=== PATIENT | male | born 1965 | race Asian ===

== ENCOUNTER 2023-05-11 07:01 | Day surgery (SDC) | payer OTHER ==
[2023-04-27 14:36] VITALS: BMI 23.8
[2023-05-11] MEDS ORDERED: MIDAZOLAM HCL 2 MG/2 ML SINGLE DOSE VIAL ONE (08:14)
[2023-05-11] MEDS ORDERED: PROPOFOL 20 ML ONE (08:14)
[2023-05-11] MEDS ORDERED: EPINEPHrine 1:1,000 1,000 MCG/ML ML ONE (08:41)
[2023-05-11] MEDS ORDERED: BUPIVACAINE HCL/PF 2.5 MG/ML - 30 ML VIAL IJ ONE (08:42)
[2023-05-11] MEDS ORDERED: DEXAMETHASONE SOD PHOSPHATE 4 MG/1 ML VIAL ONE ×2 (09:57)
[2023-05-11] MEDS ORDERED: ONDANSETRON 4 MG/2 ML VIAL ONE (09:57)
[2023-05-11] MEDS ORDERED: ceFAZolin SODIUM 1 GM VIAL ONE ×2 (09:57→09:58)
[2023-05-11] MEDS ORDERED: KETOROLAC TROMETHAMINE 30 MG/1 ML VIAL ONE (09:57)
[2023-05-11] MEDS ORDERED: oxyCODONE HCL 5 MG TABLET PO PRN (10:55)
[2023-05-11] MEDS ORDERED: FENTANYL CITRATE/PF 50 MCG/ML VIAL ONE (10:59)
[2023-05-11] MEDS ORDERED: oxyCODONE HCL 5 MG TABLET ONE (11:21)
[2023-05-11] MEDS: oxyCODONE HCL 5 MG TABLET PO PRN (11:24)
[2023-05-11 12:16] VITALS: RESP 20; TEMP 97.8
[2023-05-11 13:52] VITALS: BP 112/71; PULSE 74
== END 2023-05-11 13:00 | disposition home or self-care (01) ==
LOC: FASU 07:01
PROVIDERS: ATTEND Orthopaedic Surgery
PROC: 0SBC4ZZ Excision of Right Knee Joint, Percutaneous Endoscopic Approach (ICD-10-PCS; 2023-05-11)
PROC: 0SQC4ZZ Repair Right Knee Joint, Percutaneous Endoscopic Approach (ICD-10-PCS; principal; 2023-05-11 09:52)
DX: S83.241A Other tear of medial meniscus, current injury, right knee, initial encounter (principal); M65.861 Other synovitis and tenosynovitis, right lower leg; S83.8X1A Sprain of other specified parts of right knee, initial encounter; X58.XXXA Exposure to other specified factors, initial encounter; Y92.9 Unspecified place or not applicable; Y93.9 Activity, unspecified
CPT/HCPCS: 94760